=== PATIENT | female | born 1970 | race Caucasian/White ===

== ENCOUNTER 2018-04-13 08:34 | Outpatient (CLI) | payer BC | END 2018-04-13 09:00 | disposition home or self-care (01) | LOC: D.MAMMO 08:34 | DX: Z12.31 Encounter for screening mammogram for malignant neoplasm of breast (principal) ==

== ENCOUNTER → 2018-08-10 08:34 | Outpatient (CLI) | payer BC | END | disposition home or self-care (01) | LOC: D.MRI 08:30 | DX: M25.561 Pain in right knee (principal) ==